=== PATIENT | female | born 1975 | race African-American/Black ===

== ENCOUNTER 2025-02-05 12:22 | Inpatient (IN) | payer OTHER ==
[~2025-02-05] VITALS: Ht 165.1 cm; Wt 77.3 kg
--- NOTE | 2025-02-05 13:14 | ED.PDOC ---
GI ASSESSMENT HPI Comments 49-year-old female with a history of type 2 diabetes presents to the ER complaining of nausea, vomiting, diarrhea, lightheadedness, and inability to tolerate p.o. food or liquids over the past 24 hours. She denies any fever or urinary symptoms. Patient states she was seen at [facility] in late November for the same complaint. She was advised she needed follow-up with a optical store manager to be evaluated for possible IBS or Crohn's disease, however she has not been able to establish urgent GI follow-up. Chief Complaint: Nausea/Vomiting Time Seen by MD: 12:45 Reviewed Notes: Nurses Notes, Medications, Allergies Allergies: Coded Allergies: Penicillins (Verified Allergy, Unknown, 02/05/25) Information Source: Patient Mode of Arrival: Ambulatory Timing: Days Duration: Since onset Prehospital treatment: None Quality: None Vomitus: Watery Stool: Watery Severity: Moderate Recent: None Recent Hx of: None Pain Location: Epigastric Modifying Factors: Nothing Associated sign and symptoms: Nausea, Vomiting, Diarrhea, Abdominal Pain Past Medical History PAST MEDICAL HISTORY: DM Surgical History (Other): right hip replacement 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 [employer] 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 History: Denies all LEAF [employer]PER Hx Family History Family History: Unknown Social History Smoker: Non-Smoker Alcohol: Occasionally Drugs: Denies Drug Use Lives In: Home Constitutional: denies: chills, diaphoresis, fatigue, fever, malaise, sweats, weakness, others EENTM: denies: blurred vision, double vision, ear bleeding, ear discharge, ear drainage, ear pain, ear ringing, eye pain, eye redness, hearing loss, mouth pain, mouth swelling, nasal discharge, nose bleeding, nose congestion, nose pain, photophobia, tearing, throat pain, throat swelling, voice changes, others Respiratory: denies: cough, hemoptysis, orthopnea, SOB at rest, shortness of breath, SOB with excertion, stridor, wheezing, others Cardiovascular: denies: chest pain, dizzy spells, diaphoresis, Dyspnea on exertion, edema, irregular heart beat, left arm pain, lightheadedness, palpitations, PND, syncope, others Gastrointestinal: reports: abdominal pain, diarrhea, nausea, vomiting; denies: abdomen distended, blood streaked bowels, constipated, dysphagia, difficulty swallowing, hematemesis, melena, poor appetite, poor fluid intake, rectal bleeding, rectal pain, others Genitourinary: denies: abnormal vagina bleeding, burning, dyspareunia, dysuria, flank pain, frequency, hematuria, incontinence, pain, , vagina discharge, urgency, others Neurological: reports: dizziness; denies: fainting, headache, left sided numbness, left sided weakness, numbness, paresthesia, pre-existing deficit, right sided numbness, right sided weakness, seizure, speech problems, tingling, tremors, weakness, others Musculoskeletal: denies: back pain, gout, joint pain, joint swelling, muscle pain, muscle stiffness, neck pain, others Integumetry: denies: bruises, change in color, change in hair/nails, dryness, laceration, lesions, lumps, rash, wounds, others Allergic/Immunocompromised: denies: Difficulty Healing, Frequent Infections, Hives, Itching, others Hematologic/Lymphatic: denies: anemia, blood clots, easy bleeding, easy bruising, swollen glands, others Endocrine: denies: excessive hunger, excessive sweating, excessive thirst, excessive urination, flushing, intolerance to cold, intolerance to heat, unexplained weight gain, unexplained weight loss, others Psychiatric: denies: anxiety, bipolar disorder, depression, hopeless, panic disorder, schizophrenia, sleepless, suicidal, others All Other Systems: Reviewed and Negative Physical Exam General Appearance: Mild Distress HEENT: Other (Pupils and face symmetric. Moist mucous membranes.) Neck: Full Range of Motion, Normal Inspection Respiratory: Lungs Clear, No Accessory Muscle Use, No Respiratory Distress, Normal Breath Sounds Cardiovascular: No Edema, No JVD, Regular Rate/Rhythm Breast Exam: Deferred Gastrointestinal: Soft, Tenderness (Epigastric and supraumbilical) Genitalia: Deferred Pelvic: Deferred Rectal: Deferred Extremities: Normal inspection, Normal range of motion, Non-tender, No pedal edema Neurologic: Alert (Oriented x4), Normal Affect, Normal Mood, Other (Ambulatory) Cerebellar Function: NOT DONE Reflexes: NOT DONE Skin: Dry, Normal Color, Warm Lymphatic: NOT DONE Was a procedure done? Was a procedure done?: No GI differential Dx Differential Diagnosis: Diverticular disease, Gastritis/PUD, Gastroenteritis, Inflammatory BD, Ischemic Bowel, Pancreatitis, UTI, Dehydration, Electrolyte Imbalance, Food Poisoning, Bacterial, Viral, Hypovolemia, Esophageal Varicies, Stress Ulcer X-Ray, Labs, Meds, VS Vital Signs Date Time Temp Pulse Resp B/P (MAP) Pulse Ox O2 Delivery O2 Flow Rate FiO2 02/05/25 15:50 80 18 132/81 (98) 98 02/05/25 14:19 78 14 120/75 02/05/25 13:48 91 15 118/78 02/05/25 13:28 98.0 91 15 118/78 (91) 98 98.0 02/05/25 12:29 97.6 106 16 121/81 95 97.6 Lab Test 02/05/25 14:42 02/05/25 13:25 02/05/25 12:55 Range/Units Troponin I High Sensitivity < 3 L < 3 L </=34 ng/L Beta-Hydroxybutyric Acid 0.096 < 0.4 mmol/L Thyroid Stimulating Hormone (TSH) 0.85 0.55-4.78 uIU/mL Plasma/Serum Blood Alcohol Pending White Blood Count 5.3 4.4-10.8 10^3/uL Red Blood Count 4.51 4.0-5.20 10^6/uL Hemoglobin 13.4 12.2-16.2 g/dL Hematocrit 40.2 36.0-46.0 % Mean Corpuscular Volume 89.0 80.0-100.0 fL Mean Corpuscular Hemoglobin 29.8 28.0-32.0 pg Mean Corpuscular Hemoglobin Concent 33.5 32.0-36.0 g/dL Red Cell Distribution Width 14.3 11.8-14.3 % Platelet Count 319 140-450 10^3/uL Mean Platelet Volume 7.3 6.9-10.8 fL Neutrophils (%) (Auto) 50.8 37.0-80.0 % Lymphocytes (%) (Auto) 39.8 10.0-50.0 % Monocytes (%) (Auto) 5.8 0.0-12.0 % Eosinophils (%) (Auto) 3.1 0.0-7.0 % Basophils (%) (Auto) 0.5 0.0-2.0 % Neutrophils # (Auto) 2.7 1.6-8.6 10 ^3/uL Lymphocytes # (Auto) 2.1 0.4-5.4 10 ^3/uL Monocytes # (Auto) 0.3 0-1.3 10 ^3/uL Eosinophils # (Auto) 0.2 0-0.8 10 ^3/uL Basophils # (Auto) 0 0-0.2 10 ^3/uL Nucleated Red Blood Cells 0.0 % Sodium Level 138 136-145 mmol/L Potassium Level 3.8 3.5-5.1 mmol/L Chloride Level 106 98-107 mmol/L Carbon Dioxide Level 20 20-31 mmol/L Anion Gap 12 5-15 Blood Urea Nitrogen 7 L 9-23 mg/dL Creatinine 0.79 0.550-1.02 mg/dL Glomerular Filtration Rate Calc 92 >90 mL/min BUN/Creatinine Ratio 8.9 L 10.0-20.0 Serum Glucose 378 H 74-106 mg/dL Calcium Level 9.2 8.7-10.4 mg/dL Total Bilirubin 0.7 0.2-1.0 mg/dL Aspartate Amino Transferase (AST) 18 13-40 U/L Alanine Aminotransferase (ALT) 21 7-40 U/L Alkaline Phosphatase 91 46-116 U/L Total Protein 7.2 5.7-8.2 g/dL Albumin 4.7 3.2-4.8 g/dL Lipase 71 H 12-53 U/L Urine Color Light-yellow Yellow Urine Clarity Clear Clear Urine pH 5.0 5.0-9.0 Urine Specific [place] 1.042 H 1.001-1.035 Urine Protein Negative Negative Urine Ketones Trace Negative Urine Blood Negative Negative /uL Urine Nitrite Negative Negative Urine Bilirubin Negative Negative Urine Urobilinogen Normal Negative mg/dL Urine Leukocyte Esterase Negative Negative /uL Urine RBC 1 0 - 4 /hpf Urine Microscopic WBC < 1 0-5 /HPF Urine Squamous Epithelial Cells Few <5 /hpf Urine Bacteria None seen None Seen /hpf Urine Mucus Few None Seen Urine Glucose 4+ H Normal mg/dL Urine Opiates Screen Neg NEGATIVE Urine Fentanyl Screen Neg NEGATIVE Urine Barbiturates Screen Neg NEGATIVE Urine Phencyclidine Screen Neg NEGATIVE Urine Amphetamines Screen Neg NEGATIVE Urine Benzodiazepines Screen Neg NEGATIVE Urine Cocaine Screen Neg NEGATIVE Urine Cannabinoids Screen Neg NEGATIVE Current Medications Medications (Trade) Dose Ordered Sig/Brenda Route Start Time Stop Time Status Last Admin Morphine Sulfate 4 mg ONCE ONCE IV 02/05/25 13:00 02/05/25 13:39 DC 02/05/25 13:48 Ondansetron HCl (Zofran) 4 mg ONCE ONCE IV 02/05/25 13:00 02/05/25 13:39 DC 02/05/25 13:49 Pantoprazole Sodium (Protonix) 40 mg ONCE ONCE IV 02/05/25 13:00 02/05/25 13:39 DC 02/05/25 13:49 Sodium Chloride 2,000 ml @ 1,000 mls/hr Q2H ONCE IV 02/05/25 13:00 02/05/25 14:59 DC 02/05/25 13:49 Loperamide HCl (Imodium Capsule) 2 mg ONCE ONCE PO 02/05/25 15:00 02/05/25 15:01 DC 02/05/25 14:57 Ceftriaxone Sodium 50 ml @ 100 mls/hr ONCE ONCE IV 02/05/25 15:45 02/05/25 16:14 DC 02/05/25 16:34 Metronidazole 100 ml @ 100 mls/hr ONCE ONCE IV 02/05/25 15:45 02/05/25 16:44 DC 02/05/25 17:10 Sodium Chloride 1,000 ml @ 1,000 mls/hr Q1H ONCE IV 02/05/25 15:45 02/05/25 16:44 DC 02/05/25 16:35 [place] [id number] Ph: [phone] DIAGNOSTIC IMAGING Diagnostic Imaging Report : [id number] Signed PATIENT: VIVIANA COVINGTON ACCT: [id number] UNIT: [id number] : 1975 LOC: ER ROOM / BED: / AGE / SEX: 49 / F ADM STATUS: REG ER SERVICE 1254 ORDERING PHYSICIAN: CARMEN MCNULTY MD PROCEDURE(s): ABPL - CT AB PEL WO CON-NO ORAL OR IV REASON: mid abd pain n/v/d ORDER NUMBER(s): [id number], ACCESSION NUMBER(s): [id number] EXAM: CT CT AB PEL WO CON-NO ORAL OR IV HISTORY: mid abd pain n/v/d COMPARISON: None TECHNIQUE: Helical CT images of the abdomen and pelvis were performed without IV contrast. Sagittal and coronal reformatted images were obtained. This CT exam was performed using one or more of the following dose reduction techniques: Automated exposure control, adjustment of the mA and/or kv according to patient size, or the use of iterative reconstruction techniques. Radiation Dose: Abdomen/Pelvis: CTDIvol 6.79 mGy, DLP 354.49 mGy*cm. FINDINGS: CT abdomen: There is mild scarring in the lung bases. There are bilateral breast implants, not fully imaged here. The heart is not enlarged. The noncontrast spleen, pancreas, right kidney, and bilateral adrenal glands are unremarkable. 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 The liver measures 20 cm longitudinal. There is a left upper quadrant splenule. There is at least 1 tiny gallstone in the gallbladder (image 35, series 2). No abdominal aortic aneurysm. CT pelvis: No abnormal bowel dilatation, free air, or free fluid. The appendix and urinary bladder are unremarkable. There is a section scar. Uterine margins are mildly nodular. There is a tampon in the vagina. There is moderate lumbar degenerative disc disease and advanced lumbar facet arthropathy. There is a right total hip arthroplasty. There is mild osteoarthritis of the left hip. IMPRESSION: 1. Postoperative changes of bilateral breast implants, section surgery, and right total hip arthroplasty. 2. Cholelithiasis. 3. Hepatomegaly. 4. Nodular uterine margins may be due to scarring or fibroid disease. 5. Lumbar degenerative disc disease and facet arthropathy. If the patient complains of lower extremity radicular symptoms, consider follow-up noncontrast MRI of the lumbar spine for evaluation of the exiting nerve roots. 6. No evidence of bowel obstruction, acute appendicitis, or other acute process in the abdomen or pelvis. ATED BY: JOSE LUIS WISDOM MD DICTATED DATE/TIME: 02/05/25 1348 SIGNED BY: JOSE LUIS WISDOM MD SIGNED DATE/TIME: 02/05/25 1348 CC: X-Ray, Labs, Meds, VS Comment 49-year-old female with a history of type 2 diabetes complaining of abdominal pain, nausea, vomiting and diarrhea and inability to tolerate p.o. food or liquids Vitals remarkable for heart rate 106 Exam remarkable for epigastric and supraumbilical tenderness to palpation Rhythm strip independently interpreted by me: Sinus tach, rate 106, no ectopy. CT abdomen and pelvis showed cholelithiasis but no other finding of acute significance CBC unremarkable, CMP remarkable for glucose 378, lipase 71, UA 4+ glucose Patient treated with the following in the ED: 2 L 0.9 normal saline IV bolus, morphine 4 mg IV, Zofran 4 mg IV, Imodium 2 mg p.o. On re-evaluation, nausea and pain have improved. Vitals were stable. Plan is to admit the patient for GI evaluation Time of 1ST Reevaluation: 13:15 Reevaluation 1ST: Unchanged Patient Education/Counseling: Diagnosis, Treatment Family Education/Counseling: No Family Present SEPSIS Sepsis Screen Date sepsis recognized/suspect: Feb 05, 2025 Time Sepsis recognized/suspect: 1230 Recent Procedure: No On Antibiotic Therapy: No Respiratory Rate >20: No Heart Rate >90: Yes Temp<36 C (96.8 F) or >38.3 C: No SBP <90 or MAP <65 mmHG: No New Acute Mental Status Change: No Is the patient on CPAP, BIPAP,: No SEPSIS EXCLUSION NOTE: Sepsis Exclusion Note: Patient presents with SIRS criteria, but the SIRS response is attributed to [pain, hypovolemia ], not a suspected infection. Sepsis bundle is not initiated at this time, due to this reason. Further management will focus on the treatment of the above condition (s). Physician Orders Ct Ab Pel Wo Con-No Oral Or Iv (02/05/25 12:54) Stool Wbc (02/05/25 15:38) Stool Bacterial Culture (02/05/25 15:38) Stool Occult Blood (02/05/25 15:38) LIVER (02/05/25 15:38) Clostridium Difficile Toxin (02/05/25 15:38) Sodium Chloride 0.9% (02/05/25 15:45) Insulin Lantus (Glargine) (Lantus) (02/05/25 22:00) Glucose Blood (Accu-Chek Comfort Curve T (02/05/25 18:00) Insulin R (Human) (Insulin R) (02/05/25 18:00) Dextrose 50% Syringe (02/05/25 15:45) Electrocardigram (02/05/25 15:41) Metoclopramide Injection (Reglan Injecti (02/05/25 15:45) Pantoprazole (Protonix) (02/06/25 10:00) Blood Alcohol (02/05/25 15:47) Vital Signs Date Time Temp Pulse Resp B/P (MAP) Pulse Ox O2 Delivery O2 Flow Rate FiO2 02/05/25 15:50 80 18 132/81 (98) 98 02/05/25 14:19 78 14 120/75 02/05/25 13:48 91 15 118/78 02/05/25 13:28 98.0 91 15 118/78 (91) 98 98.0 02/05/25 12:29 97.6 106 16 121/81 95 97.6 Laboratory Tests Test 02/05/25 13:25 White Blood Count 5.3 10^3/uL (4.4-10.8) Medications Medications Dose Ordered Sig/Brenda Route Start Time Stop Time Status Last Admin Dose Admin Ceftriaxone Sodium 50 ml @ 100 mls/hr ONCE ONCE IV 02/05/25 15:45 02/05/25 16:14 DC 02/05/25 16:34 Loperamide HCl 2 mg ONCE ONCE PO 02/05/25 15:00 02/05/25 15:01 DC 02/05/25 14:57 Metronidazole 100 ml @ 100 mls/hr ONCE ONCE IV 02/05/25 15:45 02/05/25 16:44 DC 02/05/25 17:10 Morphine Sulfate 4 mg ONCE ONCE IV 02/05/25 13:00 02/05/25 13:39 DC 02/05/25 13:48 Ondansetron HCl 4 mg ONCE ONCE IV 02/05/25 13:00 02/05/25 13:39 DC 02/05/25 13:49 Pantoprazole Sodium 40 mg ONCE ONCE IV 02/05/25 13:00 02/05/25 13:39 DC 02/05/25 13:49 Sodium Chloride 1,000 ml @ 1,000 mls/hr Q1H ONCE IV 02/05/25 15:45 02/05/25 16:44 DC 02/05/25 16:35 Sodium Chloride 2,000 ml @ 1,000 mls/hr Q2H ONCE IV 02/05/25 13:00 02/05/25 14:59 DC 02/05/25 13:49 Departure 1 Departure Time of Disposition: 15:03 Impression: Primary Impression: Abdominal pain Qualified Codes: R10.10 - Upper abdominal pain, unspecified Additional Impressions: Nausea vomiting and diarrhea Hyperglycemia Serum lipase elevation Disposition: ADMITTED INPATIENT Admit to: Med Surg Condition: Guarded Critical Care Note Critical Care Time?: No Stability Stability form required: No Heart Score Heart Score: Heart Score Response (Comments) Value History N/A 0 EKG N/A 0 Age N/A 0 Risk Factors N/A 0 Troponin N/A 0 Total 0 I personally scribed for CARMEN MCNULTY MD ([email or web address]) on 02/05/25 at 13:14. Electronically submitted by Lorena Gutierrez ([email or web address]). I personally scribed for CARMEN MCNULTY MD ([email or web address]) on 02/05/25 at 13:54. Electronically submitted by Lorena Gutierrez ([email or web address]). CARMEN MCNULTY MD Feb 05, 2025 13:14
[2025-02-05] MEDS: MORPHINE SULFATE 4 MG/ML SYR/VIAL IV ONE (13:48)
[2025-02-05] MEDS: SODIUM CHLORIDE 0.9% 2,000 ML IV ONE (13:49)
[2025-02-05] MEDS: PANTOPRAZOLE 40 MG/10 ML VIAL INJ IV ONE (13:49)
[2025-02-05] MEDS: ONDANSETRON HCL 4 MG/2 ML VIAL IV ONE (13:49)
[2025-02-05 13:51] LABS: Hematocrit 40.2 % (36.0-46.0); Hemoglobin 13.4 g/dL (12.2-16.2); Mean Corpuscular Hemoglobin 29.8 pg (28.0-32.0); Mean Corpuscular Volume 89.0 fL (80.0-100.0); Nucleated Red Blood Cells % 0.0 %
--- NOTE | 2025-02-05 13:51 | DVH ---
EXAM: CT CT AB PEL WO CON-NO ORAL OR IV HISTORY: mid abd pain n/v/d COMPARISON: None TECHNIQUE: Helical CT images of the abdomen and pelvis were performed without IV contrast. Sagittal a nd coronal reformatted images were obtained. This CT exam was performed using one or more of the foll owing dose reduction techniques: Automated exposure control, adjustment of the mA and/or kv according to patient size, or the use of iterative reconstruction techniques. Radiation Dose: Abdomen/Pelvis: CTDIvol 6.79 mGy, DLP 354.49 mGy*cm. FINDINGS: CT abdomen: There is mild scarring in the lung bases. There are bilateral breast implants, not fully imaged here. The heart is not enlarged. The noncontrast spleen, pancreas, right kidney, and bilatera l adrenal glands are unremarkable. There is duplication of the left renal collecting system with 2 ur eters visualized in the upper abdomen, not well characterized in the pelvis. The liver measures 20 cm longitudinal. There is a left upper quadrant splenule. There is at least 1 tiny gallstone in the gal lbladder (image 35, series 2). No abdominal aortic aneurysm. CT pelvis: No abnormal bowel dilatation, free air, or free fluid. The appendix and urinary bladder ar e unremarkable. There is a section scar. Uterine margins are mildly nodular. There is a irving omar in the vagina. There is moderate lumbar degenerative disc disease and advanced lumbar facet arthr opathy. There is a right total hip arthroplasty. There is mild osteoarthritis of the left hip. IMPRESSION: 1. Postoperative changes of bilateral breast implants, section surgery, and right total hip arthroplasty. 2. Cholelithiasis. 3. Hepatomegaly. 4. Nodular uterine margins may be due to scarring or fibroid disease. 5. Lumbar degenerative disc disease and facet arthropathy. If the patient complains of lower extremi ty radicular symptoms, consider follow-up noncontrast MRI of the lumbar spine for evaluation of the e xiting nerve roots. 6. No evidence of bowel obstruction, acute appendicitis, or other acute process in the abdomen or pel vis.
[2025-02-05 14:03] LABS: Alanine Aminotransferase 21 U/L (7-40); Albumin 4.7 g/dL (3.2-4.8); Alkaline Phosphatase 91 U/L (46-116); BUN/Creatinine Ratio 8.9 (10.0-20.0); Calcium 9.2 mg/dL (8.7-10.4); Total Protein 7.2 g/dL (5.7-8.2)
[2025-02-05 14:04] LABS: Bilirubin, Total 0.7 mg/dL (0.2-1.0)
[2025-02-05 14:10] LABS: Urine Protein, UAD Negative (Negative)
[2025-02-05 14:13] LABS: Anion Gap 12 (5-15)
[2025-02-05 14:14] LABS: Blood Urea Nitrogen 7 mg/dL (9-23); Carbon Dioxide 20 mmol/L (20-31); Chloride 106 mmol/L (98-107); Glucose 378 mg/dL (74-106); Lipase 71 U/L (12-53); Potassium 3.8 mmol/L (3.5-5.1); Sodium 138 mmol/L (136-145)
[2025-02-05] MEDS: LOPERAMIDE HCL 2 MG CAP/TAB PO ONE (14:57)
[2025-02-05] MEDS ORDERED: DEXTROSE (50%) 50ML SYRG IV PRN (15:45)
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
[2025-02-05] MEDS: SODIUM CHLORIDE 0.9% 1,000 ML IV ONE ×2 (16:07→16:35)
--- NOTE | 2025-02-05 16:52 | DVH ---
ULTRASOUND ABDOMEN, LIMITED RIGHT UPPER QUADRANT: REASON FOR EXAM: Rule out acute cholecystitis TECHNIQUE: Real-time sector scans in the transverse and longitudinal planes were obtained through th e right upper quadrant of the abdomen. FINDINGS: The liver is borderline enlarged at 17.9 cm in length. The liver is diffusely echogenic. T here is no intrahepatic nor extrahepatic biliary ductal dilatation. There is hepatopetal flow in the portal vein. There is a focal hypoechoic round region beneath the anterior liver capsule measuring 2. 2 x 1.7 x 2.1 cm in the right lobe without hypervascularity. The common bile duct measures 4 mm. The re are a few tiny shadowing stones within the gallbladder. There is no gallbladder wall thickening n or pericholecystic fluid. There is no sonographic [place]'s sign. The visualized portion of the pancreas is unremarkable. The right kidney measures 11.0 cm. No hydronephrosis or nephrolithiasis is identified. There is no evidence of right renal mass or cyst. The visualized portions of the abdominal aorta demonstrate no evidence of aneurysmal dilatation. The visualized inferior vena cava is unremarkable. There is no free fluid identified in the right upper quadrant. IMPRESSION: The liver is diffusely echogenic which may be secondary to steatosis or another diffuse hepatic proce ss. Correlate clinically and with liver function tests. There is a 2.2 cm round hypoechoic region in the subcapsular anterior right lobe of the liver that ma y represent focal fatty sparing or atypical presentation of a hemangioma. Further evaluation with co ntrast-enhanced liver MRI or multiphase contrast-enhanced liver CT is recommended. A few tiny shadowing gallstones are identified. There is no gallbladder wall thickening or other kenny dence of acute cholecystitis.
[2025-02-05] MEDS: ACCU-CHEK COMFORT CURVE STRIP VI SCH (17:42)
[2025-02-05] MEDS: InsuLIN REG 1unit/0.01ml Soln (100units/ml) SC SCH (17:46)
[2025-02-05 18:16] LABS: Amphetamine Screen, Urine Neg (NEGATIVE); Barbiturate Scree,Urine Neg (NEGATIVE); Benzodiazephine Screen, Urine Neg (NEGATIVE); Cannabinoid Screen, Urine Neg (NEGATIVE); Cocaine Screen, Urine Neg (NEGATIVE); Opiate Scree,Urine Neg (NEGATIVE); Phencyclidine Screen, Urine Neg (NEGATIVE)
[2025-02-05 19:05] VITALS: PULSE 85; RESP 22; O2SAT 94
[2025-02-05] MEDS: MORPHINE SULFATE INJ 2 MG/ml SYRG IV PRN (20:38)
[2025-02-05] MEDS: METOCLOPRAMIDE HCL 5MG/ml INJ 2ml VIAL IV PRN (20:44)
[2025-02-05] MEDS: INSULIN LANTUS (GLARGINE) 1 /0.01ml (100units/ml) SC SCH (22:14)
[2025-02-06 04:53] LABS: Hematocrit 35.3 % (36.0-46.0); Hemoglobin 12.1 g/dL (12.2-16.2); Mean Corpuscular Hemoglobin 30.0 pg (28.0-32.0); Mean Corpuscular Volume 87.5 fL (80.0-100.0); Nucleated Red Blood Cells % 0.2 %
[2025-02-06 05:00] VITALS: BP 119/7; PULSE 80; RESP 17; TEMP 97.4; O2SAT 94
[2025-02-06 05:15] LABS: Alanine Aminotransferase 18 U/L (7-40); Albumin 4.0 g/dL (3.2-4.8); Alkaline Phosphatase 66 U/L (46-116); Anion Gap 11 (5-15); Bilirubin, Total 1.0 mg/dL (0.2-1.0); Carbon Dioxide 21 mmol/L (20-31); Magnesium 1.7 mg/dL (1.6-2.6); Sodium 142 mmol/L (136-145); Total Protein 6.3 g/dL (5.7-8.2)
[2025-02-06 05:25] LABS: BUN/Creatinine Ratio 7.9 (10.0-20.0); Blood Urea Nitrogen < 5 mg/dL (9-23); Calcium 8.0 mg/dL (8.7-10.4); Chloride 110 mmol/L (98-107); Glucose 108 mg/dL (74-106); Potassium 3.0 mmol/L (3.5-5.1)
[2025-02-06 08:00] VITALS: PULSE 96; RESP 16; O2SAT 96
[2025-02-06] MEDS: POTASSIUM CHL 20 Meq TABLET PO ONE (09:57)
[2025-02-06] MEDS: MAGNESIUM SULFATE 1GM/100ML 100 ML IV ONE (09:57)
--- NOTE | 2025-02-06 09:57 | ECG ---
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
[2025-02-06] MEDS: PANTOPRAZOLE 40 MG/10 ML VIAL INJ IV SCH (09:58)
[2025-02-06] MEDS: ENOXAPARIN SOD 40 MG/0.4 ML SYRINGE SC SCH (09:58)
[2025-02-06 13:15] VITALS: RESP 16
[2025-02-06] MEDS: ERGOCALCIFEROL 50,000 UNIT(1.25MG) CAP PO SCH (13:42)
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
[2025-02-06] MEDS: DICYCLOMINE HCL 10 MG CAP PO SCH (18:10)
[2025-02-06 21:47] VITALS: BP 130/83; PULSE 76; TEMP 98.2; O2SAT 98
[2025-02-07] VITALS (8 sets, daily range): BP systolic 109–137; BP diastolic 66–89; PULSE 71–96; RESP 12–18; TEMP 97.8–98.6; O2SAT 95–99
[2025-02-07] MEDS: DOCUSATE SOD 100 MG CAP PO ONE (00:39)
[2025-02-07 06:02] LABS: Alanine Aminotransferase 21 U/L (7-40); Alkaline Phosphatase 69 U/L (46-116); Anion Gap 10 (5-15); Calcium 9.0 mg/dL (8.7-10.4); Carbon Dioxide 22 mmol/L (20-31); Glucose 99 mg/dL (74-106); Potassium 3.5 mmol/L (3.5-5.1); Sodium 140 mmol/L (136-145); Total Protein 6.6 g/dL (5.7-8.2)
[2025-02-07 06:03] LABS: Bilirubin, Total 0.9 mg/dL (0.2-1.0); Hematocrit 37.2 % (36.0-46.0); Hemoglobin 12.8 g/dL (12.2-16.2); Mean Corpuscular Hemoglobin 30.2 pg (28.0-32.0); Mean Corpuscular Volume 87.9 fL (80.0-100.0); Nucleated Red Blood Cells % 0.1 %
[2025-02-07 06:11] LABS: BUN/Creatinine Ratio 7.1 (10.0-20.0); Blood Urea Nitrogen < 5 mg/dL (9-23); Chloride 108 mmol/L (98-107)
[2025-02-07 06:48] LABS: Albumin 4.0 g/dL (3.2-4.8)
[2025-02-07 07:37] LABS: Magnesium 2.0 mg/dL (1.6-2.6)
[2025-02-07] MEDS: LACTULOSE 20Gm/30ML SOLN PO ONE (09:39)
[2025-02-07] MEDS: DOCUSATE SOD 100 MG CAP PO SCH (09:39)
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
--- NOTE | 2025-02-07 13:37 | DVHPN2 ---
Subjective Patient is still complaining of abdominal pain Changes from previous H/P or p: No Changes Objective Vitals Vital Signs Date Time Temp Pulse Resp B/P (MAP) Pulse Ox O2 Delivery O2 Flow Rate FiO2 02/07/25 13:00 98.6 77 16 109/73 (85) 98 98.6 02/07/25 01:15 Room Air* 0 21 Intake/Output Intake and Output 02/07/25 07:00 Intake Total 0 ml Balance 0 ml Intake Oral 0 ml General Appearance: Alert, Oriented X3, Cooperative, No acute distress, mild distress, moderate distress, severe distress, Other Lungs: Clear to auscultation, Normal air movement, Other Cardiovascular: Regular rate, Normal S1, Normal S2, No murmurs, Gallops, Rubs, Other Abdomen: Normal bowel sounds, Soft, No tenderness (Periumbilical tenderness), N o hepatospenomegaly, No masses, Other Medications Current Medications Medications Dose Ordered Sig/Brenda Route Start Time Stop Time Status Last Admin Dose Admin Insulin Glargine 22 units BID@0700,2200 SC 02/05/25 22:00 02/06/25 21:41 22 UNITS Diagnostic Test (Pha) 1 strip Q6HR 02/05/25 18:00 02/07/25 12:34 1 STRIP Insulin Human Regular Q6HR SC 02/05/25 18:00 02/07/25 12:38 2 UNITS Dextrose 50 ml UD PRN IV 02/05/25 15:45 Metoclopramide HCl 10 mg Q8HPRN PRN IV 02/05/25 15:45 02/06/25 11:57 10 MG Pantoprazole Sodium 40 mg DAILY IV 02/06/25 10:00 02/07/25 09:39 40 MG Enoxaparin Sodium 40 mg DAILY SC 02/06/25 10:00 02/07/25 09:40 40 MG Morphine Sulfate 2 mg Q6HPRN PRN IV 02/05/25 20:00 02/07/25 11:46 2 MG Ceftriaxone Sodium 50 ml @ 100 mls/hr DAILY@09 IV 02/06/25 16:00 02/07/25 09:51 100 MLS/HR Ergocalciferol 50,000 unit Q7D PO 02/06/25 12:30 02/06/25 13:42 50,000 UNIT Dicyclomine HCl 20 mg QID PO 02/06/25 18:00 02/07/25 11:34 20 MG Docusate Sodium 100 mg BID PO 02/07/25 10:00 02/07/25 09:39 100 MG Laboratory Results Laboratory Tests 02/07/25 05:02 Chemistry Test 02/07/25 05:02 Albumin 4.0 g/dL (3.2-4.8) Calcium Level 9.0 mg/dL (8.7-10.4) Magnesium Level 2.0 mg/dL (1.6-2.6) Total Protein 6.6 g/dL (5.7-8.2) LFT Test 02/07/25 05:02 Alanine Aminotransferase (ALT) 21 U/L (7-40) Alkaline Phosphatase 69 U/L (46-116) Aspartate Amino Transferase (AST) 20 U/L (13-40) Total Bilirubin 0.9 mg/dL (0.2-1.0) Urinalysis Test 02/05/25 12:55 Urine Color Light-yellow (Yellow) Urine Clarity Clear (Clear) Urine pH 5.0 (5.0-9.0) Urine Specific [place] 1.042 (1.001-1.035) Urine Protein Negative (Negative) Urine Ketones Trace (Negative) Urine Blood Negative /uL (Negative) Urine Nitrite Negative (Negative) Urine Bilirubin Negative (Negative) Urine Urobilinogen Normal mg/dL (Negative) Urine Leukocyte Esterase Negative /uL (Negative) Urine RBC 1 /hpf (0 - 4) Urine Microscopic WBC < 1 /HPF (0-5) Urine Squamous Epithelial Cells Few /hpf (<5) Urine Bacteria None seen /hpf (None Seen) Urine Mucus Few (None Seen) Urine Glucose 4+ mg/dL (Normal) H Labs and/or images reviewed: Labs reviewed by me, Image(s) reviewed by me Assessment/Plan Assessment/Plan Abdominal pain Nausea and vomiting Diarrhea Cholelithiasis Hepatomegaly Plan: Discussed with Dr. Ludwig Scheduled for EGD on 02/08/2025. Discussed risks, benefits alternatives of procedure and sedation patient agrees and understands Patient had MRI abdomen blood [place] we will obtain records of this to evaluate for abnormal results of liver ultrasound Monitor labs in a.m. Plan discussed with: Patient My Orders Orders - PAUL CARMONA Procedure Category Date Status Time Inflammatory Bowel LAB 02/07/25 In Process Disease-Ibd 04:38 Dicyclomine Capsule PHA 02/06/25 In Process (Bentyl Capsule) 18:00 Obtain Mr From Other ORDERS 02/07/25 Transmitted Facility 11:31 Npo (Nothing By DIET 02/07/25 Transmitted Mouth) Diet Dinner Obtain Consent For: ORDERS 02/07/25 Transmitted 13:32 Obtain Consent For AMY 02/07/25 In Process Anesthesia 13:32 Prothrombin Time W/ LAB 02/07/25 Logged INR 13:32 Date of Service: Feb 07, 2025 Billing Provider: PAUL CARMONA Common Visit Codes: [id number] INP/OBS CARE(HIGH) PAUL CARMONA Feb 07, 2025 13:37
[2025-02-07 14:45] LABS: INR 1.03 (0.9-1.15); Prothrombin Time 10.9 sec (9.3-11.8)
[2025-02-08] VITALS (8 sets, daily range): BP systolic 104–131; BP diastolic 62–80; PULSE 77–103; RESP 18–23; TEMP 97.7–98.6; O2SAT 93–100
[2025-02-08 05:25] LABS: Sodium 141 mmol/L (136-145)
[2025-02-08 05:26] LABS: Anion Gap 11 (5-15); Calcium 8.9 mg/dL (8.7-10.4); Carbon Dioxide 23 mmol/L (20-31)
[2025-02-08 05:32] LABS: BUN/Creatinine Ratio 7.2 (10.0-20.0); Blood Urea Nitrogen < 5 mg/dL (9-23); Chloride 107 mmol/L (98-107); Glucose 117 mg/dL (74-106); Potassium 3.3 mmol/L (3.5-5.1)
--- NOTE | 2025-02-08 07:18 | DVH ---
CHEST RADIOGRAPH Indication: ROUTINE FOR UPCOMING PROCEDURE Technique: Single frontal view of the chest was obtained Comparison: None FINDINGS: Lines and Tubes: None Lungs: No focal consolidation. Pleura: No effusion. No pneumothorax. Cardiomediastinal contours: Unremarkable Bones: No acute osseous abnormality. IMPRESSION: 1. No acute cardiopulmonary disease.
[2025-02-08 08:07] LABS: INR 1.03 (0.9-1.15); Partial Thromboplastin Time 25.6 SEC (24.5-34.5); Prothrombin Time 10.9 sec (9.3-11.8)
[2025-02-08] MEDS: POTASSIUM CHL 20MEQ/100ML 100 ML IV ONE (08:36)
[2025-02-08] MEDS: POTASSIUM EFFERVESENT TAB 25 MEQ PO ONE (10:40)
[2025-02-08] MEDS: LIDOCAINE VISCOUS 2% 15ML UD ONE (15:40)
[2025-02-08] MEDS: MIDAZOLAM HCL 2MG/2ML 2ml VIAL (1mg/ml) ONE (15:42)
[2025-02-08] MEDS: diphenhdrAMINE HCL 50 MG/1 ML VL ONE (15:42)
[2025-02-08] MEDS: fentaNYL CITRATE 100 MCG/2 ML VL ONE (15:42)
--- NOTE | 2025-02-08 16:22 | DVHOP2 ---
Operative Report DATE OF OPERATION: 02/08/25 PROCEDURE: Upper Endoscopy with biopsy. PREOPERATIVE INDICATION: The patient is a 49 -year-old female undergoing endoscopy for abdominal pain POSTOPERATIVE DIAGNOSES: 1. 2 cm sliding-type hiatal hernia with no significant erosive esophagitis 2. Mild gastritis otherwise normal examination up to the 2nd and 3rd part of the duodenum PROCEDURE PERFORMED BY: Estuardo Ludwig GI NURSE: Melanie SCOPE: Olympus videoendoscope. ASA CLASS: 3 PREOPERATIVE MEDICATIONS: Versed 3 mg, Fentanyl 100 mcg, Benadryl 50 mg I administered moderate sedation throughout this _15_ minutes procedure. An independent trained observer pushed medications at my direction, and monitored the patient's level of consciousness and physiological status throughout. PROCEDURE IN DETAIL: After obtaining an informed consent, the patient was placed on left lateral decubitus position. The patient was then sedated with the above medications. A bite block was placed between her teeth. The endoscope was then passed through the oropharynx, into the esophagus, and through the stomach and pylorus up to the second and third part of the duodenum. The endoscope was then withdrawn. The 2nd and 3rd part of the duodenum and duodenal bulb were normal. Duodenal biopsies were obtained The pre-pyloric area and antrum showed mild gastritis. Gastric biopsies were obtained. On retroflexion the fundus cardia and angularis were normal. The endoscope was then withdrawn into distal esophagus Patient had a 2 cm sliding-type hiatal hernia with no significant erosive esophagitis and no stricture The remaining distal and proximal esophagus and oropharynx were unremarkable The patient tolerated the procedure well without difficulty. COMPLICATIONS : None SPECIMENS: Duodenal biopsies Gastric biopsies DISPOSITION: Transfer back to the floor Stable PLAN: 1. Await for biopsy result 2. Will place pt on Protonix 40 mg p.o. daily 3. Lifestyle and dietary modifications for GERD 4. Avoid aspirin NSAIDs smoking alcohol 5. Resume GI soft diet advance as tolerated ESTUARDO LUDWIG MD Feb 08, 2025 16:22
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
[2025-02-08] MEDS: PANTOPRAZOLE 40 MG TAB PO SCH (18:06)
[2025-02-08] MEDS: SUCRALFATE 1 GM/10 ML ORAL SUSP PO SCH (22:01)
[2025-02-09] VITALS (7 sets, daily range): BP systolic 94–118; BP diastolic 56–78; PULSE 77–90; RESP 18–20; TEMP 98.1–98.6; O2SAT 95–98
[2025-02-09 06:27] LABS: Chloride 106 mmol/L (98-107); Potassium 3.6 mmol/L (3.5-5.1); Sodium 142 mmol/L (136-145)
[2025-02-09 06:28] LABS: Anion Gap 12 (5-15); Carbon Dioxide 24 mmol/L (20-31)
[2025-02-09 06:34] LABS: BUN/Creatinine Ratio 8.0 (10.0-20.0)
[2025-02-09 06:38] LABS: Blood Urea Nitrogen 6 mg/dL (9-23); Calcium 8.7 mg/dL (8.7-10.4); Glucose 150 mg/dL (74-106)
[2025-02-09] MEDS: SODIUM CHLORIDE 0.9% 1,000 ML IV ONE (07:30)
--- NOTE | 2025-02-09 09:24 | DVHDSRES ---
Discharge Summary Date of Admission Resident Creating Document: STEFAN BASS RESIDENT Feb 05, 2025 at 15:54 Date of Discharge: Feb 09, 2025 Admitting Diagnosis Acute gastroenteritis likely infectious Labs/Diagnostic Data: Laboratory Results Test 02/09/25 06:55 02/09/25 05:53 02/08/25 07:21 02/08/25 04:55 POC Glucose 129 mg/dl (70-106) Sodium Level 142 mmol/L (136-145) Potassium Level 3.6 mmol/L (3.5-5.1) Chloride Level 106 mmol/L (98-107) Carbon Dioxide Level 24 mmol/L (20-31) Anion Gap 12 (5-15) Blood Urea Nitrogen 6 mg/dL (9-23) Creatinine 0.75 mg/dL (0.550-1.02) Glomerular Filtration Rate Calc 98 mL/min (>90) BUN/Creatinine Ratio 8.0 (10.0-20.0) Serum Glucose 150 mg/dL (74-106) Calcium Level 8.7 mg/dL (8.7-10.4) Prothrombin Time 10.9 sec (9.3-11.8) Prothrombin Time INR 1.03 (0.9-1.15) Activated Partial Thromboplast Time 25.6 SEC (24.5-34.5) Beta HCG, Quantitative 0.5 mIU/mL (1.5-4.2) Test 02/07/25 18:55 02/07/25 05:02 02/06/25 10:47 02/06/25 04:26 Stool Occult Blood Negative (Negative) Stool Occult Blood Sample #3 (Negative) Stool for White Cells None seen White Blood Count 5.0 10^3/uL (4.4-10.8) Red Blood Count 4.24 10^6/uL (4.0-5.20) Hemoglobin 12.8 g/dL (12.2-16.2) Hematocrit 37.2 % (36.0-46.0) Mean Corpuscular Volume 87.9 fL (80.0-100.0) Mean Corpuscular Hemoglobin 30.2 pg (28.0-32.0) Mean Corpuscular Hemoglobin Concent 34.3 g/dL (32.0-36.0) Red Cell Distribution Width 14.1 % (11.8-14.3) Platelet Count 315 10^3/uL (140-450) Mean Platelet Volume 7.1 fL (6.9-10.8) Neutrophils (%) (Auto) 43.2 % (37.0-80.0) Lymphocytes (%) (Auto) 46.4 % (10.0-50.0) Monocytes (%) (Auto) 6.6 % (0.0-12.0) Eosinophils (%) (Auto) 3.4 % (0.0-7.0) Basophils (%) (Auto) 0.4 % (0.0-2.0) Neutrophils # (Auto) 2.2 10 ^3/uL (1.6-8.6) Lymphocytes # (Auto) 2.3 10 ^3/uL (0.4-5.4) Monocytes # (Auto) 0.3 10 ^3/uL (0-1.3) Eosinophils # (Auto) 0.2 10 ^3/uL (0-0.8) Basophils # (Auto) 0 10 ^3/uL (0-0.2) Nucleated Red Blood Cells 0.1 % Magnesium Level 2.0 mg/dL (1.6-2.6) Total Bilirubin 0.9 mg/dL (0.2-1.0) Aspartate Amino Transferase (AST) 20 U/L (13-40) Alanine Aminotransferase (ALT) 21 U/L (7-40) Alkaline Phosphatase 69 U/L (46-116) Total Protein 6.6 g/dL (5.7-8.2) Albumin 4.0 g/dL (3.2-4.8) Lactic Acid Level 1.0 mmol/L (0.4-2.0) Vitamin B12 Level 301 pg/mL (211-911) Vitamin D 25-Hydroxy 22.2 ng/mL (30.0-100) Folic Acid 14.69 ng/mL (>5.38) Test 02/05/25 14:42 02/05/25 13:25 02/05/25 12:55 Hemoglobin A1c 11.2 % A1C (<5.7) Troponin I High Sensitivity < 3 ng/L (</=34) Beta-Hydroxybutyric Acid 0.096 mmol/L (< 0.4) Thyroid Stimulating Hormone (TSH) 0.85 uIU/mL (0.55-4.78) Plasma/Serum Blood Alcohol < 3.0 mg/dL (<10) Lipase 71 U/L (12-53) Urine Color Light-yellow (Yellow) Urine Clarity Clear (Clear) Urine pH 5.0 (5.0-9.0) Urine Specific [place] 1.042 (1.001-1.035) Urine Protein Negative (Negative) Urine Ketones Trace (Negative) Urine Blood Negative /uL (Negative) Urine Nitrite Negative (Negative) Urine Bilirubin Negative (Negative) Urine Urobilinogen Normal mg/dL (Negative) Urine Leukocyte Esterase Negative /uL (Negative) Urine RBC 1 /hpf (0 - 4) Urine Microscopic WBC < 1 /HPF (0-5) Urine Squamous Epithelial Cells Few /hpf (<5) Urine Bacteria None seen /hpf (None Seen) Urine Mucus Few (None Seen) Urine Glucose 4+ mg/dL (Normal) Urine Opiates Screen Neg (NEGATIVE) Urine Fentanyl Screen Neg (NEGATIVE) Urine Barbiturates Screen Neg (NEGATIVE) Urine Phencyclidine Screen Neg (NEGATIVE) Urine Amphetamines Screen Neg (NEGATIVE) Urine Benzodiazepines Screen Neg (NEGATIVE) Urine Cocaine Screen Neg (NEGATIVE) Urine Cannabinoids Screen Neg (NEGATIVE) Other Laboratory Tests 02/09/25 05:53 02/07/25 05:02 Brief Hx & Hospital Course: Patient is 49 years old female with past medical history of hypertension, diabetes mellitus type 2 came with a complaint of intractable nausea and vomiting and diarrhea. As per patient she has been having intractable nausea, vomiting for last 2 days almost 8-10 times in last last 2 days, no blood. Patient also endorsed diarrhea, 7 times overnight, still going on off and on, no blood. On further inquiry patient also endorsed epigastric pain for the same duration, sharp, 10/10, radiating towards the umbilicus, increased with the eating, decreased with some pain medication. Patient reported that she has been having diarrhea for last couple of months usually 4 to 5 times a day, no blood. On further inquiry patient reported she had sample of symptoms in November when she went to [facility] and she was treated with antibiotic and she was advised to follow up with the generation engineer to rule out Crohn's disease or irritable bowel syndrome. Patient denied any fever, acute joint pain or swelling, sick contact, any rash. Initial lab workup revealed blood sugar 378, lipase 71. Urinalysis glucose 4+. UDS negative. Urinalysis negative for UTI. CT abdomen and pelvis revealed- Postoperative changes of bilateral breast implants, section surgery, and right total hip arthroplasty. Cholelithiasis. Hepatomegaly. Nodular uterine margins may be due to scarring or fibroid disease.. Lumbar degenerative disc disease and facet arthropathy. Ultrasound of the liver revealed-The liver is diffusely echogenic which may be secondary to steatosis or another diffuse hepatic process. Correlate clinically and with liver function tests.There is a 2.2 cm round hypoechoic region in the subcapsular anterior right lobe of the liver that may represent focal fatty sparing or atypical presentation of a hemangioma Hospital course-during hospital course patient was treated conservatively with the pantoprazole and sucralfate, ceftriaxone and metronidazole. Patient's symptoms improved. Patient had endoscopy of upper GI, which revealed-2 cm sliding-type hiatal hernia with no significant erosive esophagitis, Mild gastritis otherwise normal examination up to the 2nd and 3rd part of the duodenum. Patient's symptoms improved clinically. Patient is being discharged home with pantoprazole 40 mg p.o. daily, sucralfate 1 g p.o. b.i.d., Reglan 10 mg p.o. t.i.d. for 5 days and PRN Lantus 22 units b.i.d. and metformin 1000 mg p.o. b.i.d.. Patient was advised to follow up with the primary care physician in 1-2 weeks and also to follow up with the generation engineer Dr. Ludwig in 1-2 weeks for further evaluation and care. Patient's meds were sent to the pharmacy electronically. Patient was hemodynamically stable on discharge. Assessment # acute gastritis #acute gastroenteritis likely infectious diarrhea # interactable acute abdominal pain with nausea and vomiting and diarrhea likely due to Above # hiatal hernia # uncontrolled diabetes mellitus type 2 with the hyperglycemia # hypertension # hepatomegaly # hepatic steatosis # suspected hepatic hemangioma # cholelithiasis # lumbar degenerative disc disease and facet arthropathy-CT scan finding #Nodular uterine margins may be due to scarring or fibroid disease-CT scan finding Plan Pantoprazole 40 mg p.o. daily Sucralfate 1 g p.o. b.i.d. Reglan 10 mg p.o. every 8 hours for 5 days then PRN Bentyl on gap p.o. 3 times a day PRN as prescribed Augmentin 500 mg p.o. b.i.d. for 3 days Insulin Lantus 22 units subcutaneously 2 times a day Metformin 1 g p.o. b.i.d. Please follow up with the primary care physician in 1-2 weeks Please follow up with the Dr. Ludwig, generation engineer in 1-2 weeks for further evaluation and care Consults/Reason for consult Patient: VIVIANA COVINGTON Acct: [id number] : 1975 Loc: [facility] Age/Sex: 49/F [id number] Subjective Patient is still complaining of abdominal pain Changes from previous H/P or p: No Changes Objective Vitals Vital Signs Date Time Temp Pulse Resp B/P (MAP) Pulse Ox O2 Delivery O2 Flow Rate FiO2 02/07/25 13:00 98.6 77 16 109/73 (85) 98 98.6 02/07/25 01:15 Room Air* 0 21 Intake/Output Intake and Output 02/07/25 07:00 Intake Total 0 ml Balance 0 ml Intake Oral 0 ml General Appearance: Alert, Oriented X3, Cooperative, No acute distress, mild distress, moderate distress, severe distress, Other Lungs: Clear to auscultation, Normal air movement, Other Cardiovascular: Regular rate, Normal S1, Normal S2, No murmurs, Gallops, Rubs, Other Abdomen: Normal bowel sounds, Soft, No tenderness (Periumbilical tenderness), N o hepatospenomegaly, No masses, Other Medications Current Medications Medications Dose Ordered Sig/Brenda Route Start Time Stop Time Status Last Admin Dose Admin Insulin Glargine 22 units BID@0700,2200 SC 02/05/25 22:00 02/06/25 21:41 22 UNITS Diagnostic Test (Pha) 1 strip Q6HR 02/05/25 18:00 02/07/25 12:34 1 STRIP Insulin Human Regular Q6HR SC 02/05/25 18:00 02/07/25 12:38 2 UNITS Dextrose 50 ml UD PRN IV 02/05/25 15:45 Metoclopramide HCl 10 mg Q8HPRN PRN IV 02/05/25 15:45 02/06/25 11:57 10 MG Pantoprazole Sodium 40 mg DAILY IV 02/06/25 10:00 02/07/25 09:39 40 MG Enoxaparin Sodium 40 mg DAILY SC 02/06/25 10:00 02/07/25 09:40 40 MG Morphine Sulfate 2 mg Q6HPRN PRN IV 02/05/25 20:00 02/07/25 11:46 2 MG Ceftriaxone Sodium 50 ml @ 100 mls/hr DAILY@09 IV 02/06/25 16:00 02/07/25 09:51 100 MLS/HR Ergocalciferol 50,000 unit Q7D PO 02/06/25 12:30 02/06/25 13:42 50,000 UNIT Dicyclomine HCl 20 mg QID PO 02/06/25 18:00 02/07/25 11:34 20 MG Docusate Sodium 100 mg BID PO 02/07/25 10:00 02/07/25 09:39 100 MG Laboratory Results Laboratory Tests 02/07/25 05:02 Chemistry Test 02/07/25 05:02 Albumin 4.0 g/dL (3.2-4.8) Calcium Level 9.0 mg/dL (8.7-10.4) Magnesium Level 2.0 mg/dL (1.6-2.6) Total Protein 6.6 g/dL (5.7-8.2) LFT Test 02/07/25 05:02 Alanine Aminotransferase (ALT) 21 U/L (7-40) Alkaline Phosphatase 69 U/L (46-116) Aspartate Amino Transferase (AST) 20 U/L (13-40) Total Bilirubin 0.9 mg/dL (0.2-1.0) Urinalysis Test 02/05/25 12:55 Urine Color Light-yellow (Yellow) Urine Clarity Clear (Clear) Urine pH 5.0 (5.0-9.0) Urine Specific [place] 1.042 (1.001-1.035) Urine Protein Negative (Negative) Urine Ketones Trace (Negative) Urine Blood Negative /uL (Negative) Urine Nitrite Negative (Negative) Urine Bilirubin Negative (Negative) Urine Urobilinogen Normal mg/dL (Negative) Urine Leukocyte Esterase Negative /uL (Negative) Urine RBC 1 /hpf (0 - 4) Urine Microscopic WBC < 1 /HPF (0-5) Urine Squamous Epithelial Cells Few /hpf (<5) Urine Bacteria None seen /hpf (None Seen) Urine Mucus Few (None Seen) Urine Glucose 4+ mg/dL (Normal) H Labs and/or images reviewed: Labs reviewed by me, Image(s) reviewed by me Assessment/Plan Assessment/Plan Abdominal pain Nausea and vomiting Diarrhea Cholelithiasis Hepatomegaly Plan: Discussed with Dr. Ludwig Scheduled for EGD on 02/08/2025. Discussed risks, benefits alternatives of procedure and sedation patient agrees and understands Patient had MRI abdomen blood [place] we will obtain records of this to evaluate for abnormal results of liver ultrasound Monitor labs in a.m. Plan discussed with: Patient My Orders Orders - PAUL CARMONA Procedure Category Date Status Time Inflammatory Bowel LAB 02/07/25 In Process Disease-Ibd 04:38 Dicyclomine Capsule PHA 02/06/25 In Process (Bentyl Capsule) 18:00 Obtain Mr From Other ORDERS 02/07/25 Transmitted Facility 11:31 Npo (Nothing By DIET 02/07/25 Transmitted Mouth) Diet Dinner Obtain Consent For: ORDERS 02/07/25 Transmitted 13:32 Obtain Consent For AMY 02/07/25 In Process Anesthesia 13:32 Prothrombin Time W/ LAB 02/07/25 Logged INR 13:32 Date of Service: Feb 07, 2025 Billing Provider: PAUL CARMONA Common Visit Codes: [id number] INP/OBS CARE(HIGH) PAUL CARMONA Feb 07, 2025 13:37 E/M VISIT PERFORMED BY:ESTUARDO LUDWIG MD TRANSCRIBED BY:PAUL CARMONA TRANSCRIBED DATE/TIME:02/07/25 1337 ELECTRONICALLY SIGNED BY:PAUL CARMONA 02/07/25 1337 ELECTRONICALLY CO-SIGNED BY:ESTUARDO LUDWIG MD02/07/25 7718 Operations or Procedures [place] [address] Ph: [phone] DIAGNOSTIC IMAGING Diagnostic Imaging Report : [id number] Signed PATIENT: VIVIANA COVINGTON ACCT: [id number] UNIT: [id number] : 1975 LOC: ER ROOM / BED: / AGE / SEX: 49 / F ADM STATUS: REG ER SERVICE 1254 ORDERING PHYSICIAN: CARMEN MCNULTY MD PROCEDURE(s): ABPL - CT AB PEL WO CON-NO ORAL OR IV REASON: mid abd pain n/v/d ORDER NUMBER(s): [id number], ACCESSION NUMBER(s): [id number] EXAM: CT CT AB PEL WO CON-NO ORAL OR IV HISTORY: mid abd pain n/v/d COMPARISON: None TECHNIQUE: Helical CT images of the abdomen and pelvis were performed without IV contrast. Sagittal and coronal reformatted images were obtained. This CT exam was performed using one or more of the following dose reduction techniques: Automated exposure control, adjustment of the mA and/or kv according to patient size, or the use of iterative reconstruction techniques. Radiation Dose: Abdomen/Pelvis: CTDIvol 6.79 mGy, DLP 354.49 mGy*cm. FINDINGS: CT abdomen: There is mild scarring in the lung bases. There are bilateral breast implants, not fully imaged here. The heart is not enlarged. The noncontrast spleen, pancreas, right kidney, and bilateral adrenal glands are unremarkable. 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 The liver measures 20 cm longitudinal. There is a left upper quadrant splenule. There is at least 1 tiny gallstone in the gallbladder (image 35, series 2). No abdominal aortic aneurysm. CT pelvis: No abnormal bowel dilatation, free air, or free fluid. The appendix and urinary bladder are unremarkable. There is a section scar. Uterine margins are mildly nodular. There is a tampon in the vagina. There is moderate lumbar degenerative disc disease and advanced lumbar facet arthropathy. There is a right total hip arthroplasty. There is mild osteoarthritis of the left hip. IMPRESSION: 1. Postoperative changes of bilateral breast implants, section surgery, and right total hip arthroplasty. 2. Cholelithiasis. 3. Hepatomegaly. 4. Nodular uterine margins may be due to scarring or fibroid disease. 5. Lumbar degenerative disc disease and facet arthropathy. If the patient complains of lower extremity radicular symptoms, consider follow-up noncontrast MRI of the lumbar spine for evaluation of the exiting nerve roots. 6. No evidence of bowel obstruction, acute appendicitis, or other acute process in the abdomen or pelvis. ATED BY: JOSE LUIS WISDOM MD DICTATED DATE/TIME: 02/05/25 1348 SIGNED BY: JOSE LUIS WISDOM MD SIGNED DATE/TIME: 02/05/25 1348 CC: [place] [address] Ph: [phone] DIAGNOSTIC IMAGING Diagnostic Imaging Report : [id number] Signed PATIENT: VIVIANA COVINGTON ACCT: [id number] UNIT: [id number] : 1975 LOC: OVERFLOW ROOM / BED: 1025-ER / A AGE / SEX: 49 / F ADM STATUS: ADM IN SERVICE 1538 ORDERING PHYSICIAN: STEFAN BASS RESIDENT PROCEDURE(s): LIVUS - LIVER REASON: Rule out acute cholecystitis ORDER NUMBER(s): [id number], ACCESSION NUMBER(s): [id number] ULTRASOUND ABDOMEN, LIMITED RIGHT UPPER QUADRANT: REASON FOR EXAM: Rule out acute cholecystitis TECHNIQUE: Real-time sector scans in the transverse and longitudinal planes were obtained through the right upper quadrant of the abdomen. FINDINGS: The liver is borderline enlarged at 17.9 cm in length. The liver is diffusely echogenic. There is no intrahepatic nor extrahepatic biliary ductal dilatation. There is hepatopetal flow in the portal vein. There is a focal hypoechoic round region beneath the anterior liver capsule measuring 2.2 x 1.7 x 2.1 cm in the right lobe without hypervascularity. The common bile duct measures 4 mm. There are a few tiny shadowing stones within the gallbladder. There is no gallbladder wall thickening nor pericholecystic fluid. There is no sonographic [place]'s sign. The visualized portion of the pancreas is unremarkable. The right kidney measures 11.0 cm. No hydronephrosis or nephrolithiasis is identified. There is no evidence of right renal mass or cyst. The visualized portions of the abdominal aorta demonstrate no evidence of aneurysmal dilatation. The visualized inferior vena cava is unremarkable. There is no free fluid identified in the right upper quadrant. IMPRESSION: The liver is diffusely echogenic which may be secondary to steatosis or another diffuse hepatic process. Correlate clinically and with liver function tests. There is a 2.2 cm round hypoechoic region in the subcapsular anterior right lobe of the liver that may represent focal fatty sparing or atypical presentation of a hemangioma. Further evaluation with contrast-enhanced liver MRI or multiphase contrast-enhanced liver CT is recommended. A few tiny shadowing gallstones are identified. There is no gallbladder wall thickening or other evidence of acute cholecystitis. ATED BY: AHMET ENRIQUEZ MD DICTATED DATE/TIME: 02/05/251649 SIGNED BY: AHMET ENRIQUEZ MD SIGNED DATE/TIME: 02/05/251649 CC: [place] [address] Ph: [phone] DIAGNOSTIC IMAGING Diagnostic Imaging Report : [id number] Signed PATIENT: VIVIANA COVINGTON ACCT: [id number] UNIT: [id number] : 1975 LOC: CENTRAL ROOM / BED: 0208 / A AGE / SEX: 49 / F ADM STATUS: ADM IN SERVICE 0551 ORDERING PHYSICIAN: STEFAN BASS RESIDENT PROCEDURE(s): CXR1 - CHEST XRAY 1 VIEW REASON: ROUTINE FOR UPCOMING PROCEDURE ORDER NUMBER(s): [id number], ACCESSION NUMBER(s): [id number] CHEST RADIOGRAPH Indication: ROUTINE FOR UPCOMING PROCEDURE Technique: Single frontal view of the chest was obtained Comparison: None FINDINGS: Lines and Tubes: None Lungs: No focal consolidation. Pleura: No effusion. No pneumothorax. Cardiomediastinal contours: Unremarkable Bones: No acute osseous abnormality. IMPRESSION: 1. No acute cardiopulmonary disease. ATED BY: ZACHERY POPE MD DICTATED DATE/TIME: 02/08/25715 SIGNED BY: ZACHERY POPE MD SIGNED DATE/TIME: 02/08/25715 CC: Condition at Discharge: Stable Final Diagnosis/Problems List # acute gastritis #acute gastroenteritis likely infectious diarrhea # interactable acute abdominal pain with nausea and vomiting and diarrhea likely due to Above # hiatal hernia # uncontrolled diabetes mellitus type 2 with the hyperglycemia # hypertension # hepatomegaly # hepatic steatosis # suspected hepatic hemangioma # cholelithiasis # lumbar degenerative disc disease and facet arthropathy-CT scan finding #Nodular uterine margins may be due to scarring or fibroid disease-CT scan finding Discharge Disposition: Home Discharge Instruct/Medications Diet: Consistent carbohydrate, Cardiac 2g Na,low cholest Activity: No Restrictions, As Tolerated Follow Up/Referral: Please follow up with the primary care physician in 1-2 weeks Please follow up with the generation engineer Dr. Ludwig in 2-3 weeks for further evaluation and care Medications: Pantoprazole 40 mg p.o. daily Sucralfate 1 tab p.o. b.i.d. Augmentin 500 mg p.o. b.i.d. for 3 days Please resume other home medications Scheduled Amoxicillin & Pot Clavulanate (Augmentin), 1 TAB PO BID Insulin Glargine (Lantus), 22 UNIT SC BID Metformin Hydrochloride (Metformin Hcl), 1 TAB PO BID Metoclopramide Hcl (Reglan), 10 MG PO Q8HR Pantoprazole Sodium Sesquihydr (Pantoprazole Sodium), 40 MG PO DAILY Sucralfate (Carafate), 1 GM PO BID Scheduled PRN Dicyclomine Hcl (Bentyl Capsule), 1 CAP PO TID PRN Metoclopramide Hcl (Reglan), 10 MG PO Q12HR PRN Discharge Statement: "Patient was advised to return to the ER or call 911 if any headaches, dizziness, shortness of breath, chest pain, abdominal pain, bleeding, fevers, or worsening of medical condition. Patient was counseled about treatment plan, medications, possible side effects, patientverbalized understanding. All questions were answered to the best of my ability. This discharge took greater then 30 minutes in planning, reviewing documentation, counseling the patient, and discussing with other team members." ASSESSMENT ASSESSMENT Assessment Acute gastritis Acute gastroenteritis likely infectious Hiatal hernia STEFAN BASS RESIDENT Feb 09, 2025 09:24
[2025-02-09] MEDS ORDERED: DICY10CA PO (09:27)
[2025-02-09] MEDS ORDERED: SUCR1TAB31 PO (09:27)
[2025-02-09] MEDS ORDERED: AMOX500T86 PO (09:27)
[2025-02-09] MEDS ORDERED: PANT40T PO (09:27)
[2025-02-09] MEDS ORDERED: METO-281 PO ×2 (11:24)
[2025-02-09] MEDS ORDERED: METF-372 PO (11:52)
[2025-02-09] MEDS ORDERED: INSLANTI SC (11:52)
--- NOTE | 2025-02-09 14:55 | DVHPN2 ---
Progress Note - Dictate Date Seen: Feb 09, 2025 (Late entryPatient seen at 10:00 a.m.) Medical Necessity Reason Pt with a Central, PICC or Fol: No Subjective No new complaints Patient is feeling better EGD findings discussed with the patient Gastritis likely related to ibuprofen use vital signs Vital Sign Date Time Temp Pulse Resp B/P (MAP) Pulse Ox O2 Delivery O2 Flow Rate FiO2 02/09/25 11:20 86 18 118/75 02/09/25 10:01 98.6 98 02/09/25 08:00 Room Air* 0 21 Total Intake and Output 02/08/25 02/08/25 02/09/25 15:00 23:00 07:00 Intake Total 58 ml 240 ml 300 ml Balance 58 ml 240 ml 300 ml objective General Appearance: Alert, Oriented X3, Cooperative, No acute distress, Lungs: Clear to auscultation, Normal air movement, Other Cardiovascular: Regular rate, Normal S1, Normal S2, No murmurs, Gallops, Rubs, Other Abdomen: Normal bowel sounds, Soft, No tenderness No hepatospenomegaly, No masses, Extremities no clubbing cyanosis or edema Neuro alert oriented x3 with no focal deficit laboratory and microbiology Laboratory Tests 02/09/25 05:53 02/07/25 05:02 Test 02/09/25 05:53 Range/Units Serum Glucose 150 H 74-106 mg/dL Problems(with codes): (1) Hiatal hernia (2) Gastritis (3) Serum lipase elevation (4) Nausea vomiting and diarrhea (5) Abdominal pain (6) Hyperglycemia Prognosis Plan Advance diet as tolerated Discharge planning is in progress Protonix 40 mg p.o. daily Carafate 1 g p.o. q.h.s. Avoid aspirin NSAIDs smoking alcohol Outpatient follow up with me in 4-6 weeks to review results and discuss scheduling elective screening colonoscopy Plan discussed with: Patient, Other (Nurse) ESTUARDO MENDEZ MD Feb 09, 2025 14:54
== END 2025-02-09 12:10 | disposition home or self-care (01) | DRG 249 ==
LOC: ER 12:22 → OVERFLOW 15:54 → CENTRAL 02-06 23:57
PROVIDERS: ADMIT Student in an Organized Health Care Education/Training Program; ATTEND Student in an Organized Health Care Education/Training Program
PROC: 0DB68ZX Excision of Stomach, Via Natural or Artificial Opening Endoscopic, Diagnostic (ICD-10-PCS; 2025-02-08)
PROC: 0DB98ZX Excision of Duodenum, Via Natural or Artificial Opening Endoscopic, Diagnostic (ICD-10-PCS; principal; 2025-02-08 15:36)
DX: A09 Infectious gastroenteritis and colitis, unspecified (principal); R16.0 Hepatomegaly, not elsewhere classified; I10 Essential (primary) hypertension; M51.369 Other intervertebral disc degeneration, lumbar region without mention of lumbar back pain or lower extremity pain; K80.20 Calculus of gallbladder without cholecystitis without obstruction; E11.65 Type 2 diabetes mellitus with hyperglycemia; M47.816 Spondylosis without myelopathy or radiculopathy, lumbar region; K76.0 Fatty (change of) liver, not elsewhere classified; D18.09 Hemangioma of other sites; K44.9 Diaphragmatic hernia without obstruction or gangrene; K29.00 Acute gastritis without bleeding; Z98.82 Breast implant status; Z96.641 Presence of right artificial hip joint; Z88.0 Allergy status to penicillin; Z79.899 Other long term (current) drug therapy
CPT/HCPCS: 36415; 43239; 71045; 74176; 76705; 80048; 80053; 80307; 80320; 81001; 82010; 82270; 82306; 82607; 82746; 82962; 83036; 83605; 83690; 83735; 84443; 84484; 84702; 85025; 85048; 85610; 85730; 86256; 86671; 87045; 87177; 87427; 87493; 93005; 96374; 96375; G0378; J1815; J2250; J2405; J2470; J3480; J3490